=== PATIENT | male | born 1945 | race Caucasian/White ===

== ENCOUNTER 2025-04-28 07:26 | Day surgery (SDC) | payer MEDICARE, OTHER ==
[2025-04-28] MEDS ORDERED: Propofol 200 MG/20 ML SDV IV ONE (07:27)
[2025-04-28] MEDS ORDERED: Rocuronium 100 MG/10 ML MDV IV ONE (07:27)
[2025-04-28] MEDS ORDERED: fentaNYL 100 MCG/2 ML SDV IV ONE (07:27)
[2025-04-28] MEDS ORDERED: Lactated Ringers 1,000 ML IV ONE (07:27)
[2025-04-28] MEDS ORDERED: Dexamethasone 4 MG/ML 5 ML MDV IVPUSH ONE (07:27)
[2025-04-28] MEDS ORDERED: Ketorolac 30 MG/ML SDV IVPUSH ONE (07:27)
[2025-04-28] MEDS ORDERED: Ondansetron 4 MG/2 ML SDV IVPUSH ONE (07:27)
[2025-04-28] MEDS ORDERED: Succinylcholine 200 MG/10 ML MDV IV ONE (07:27)
[2025-04-28] MEDS ORDERED: diphenhydrAMINE 50 MG/ML SDV IVPUSH ONE (07:27)
[2025-04-28] MEDS ORDERED: Midazolam 1 MG/ML 2 ML SDV IV ONE (07:27)
[2025-04-28] MEDS ORDERED: Sodium Chloride 0.9% 10 ML Syringe FLUSH PRN (07:30)
[2025-04-28] MEDS: Lactated Ringers 1,000 ML IV SCH (08:54)
[2025-04-28] MEDS: Bupivacaine 0.5%/EPINEPHrine 1:200,000 30 ML SDV INJECT ONE (09:58)
[2025-04-28 11:54] VITALS: BP 125/68; PULSE 57
== END 2025-04-28 12:50 | disposition home or self-care (01) ==
LOC: FB.SDS 07:26
PROVIDERS: ATTEND Surgery
DX: K80.10 Calculus of gallbladder with chronic cholecystitis without obstruction (principal); Z79.82 Long term (current) use of aspirin; Z79.899 Other long term (current) drug therapy
CPT/HCPCS: 00790; 47562; 88304; 99100; A9270; J0330; J0665; J0690; J1100; J1200; J1885; J2250; J2405; J2704; J3010; J7120